=== PATIENT | male | born 1985 | race American Indian/Alaskan Native ===

== ENCOUNTER 2017-04-15 02:48 | Emergency (ER) | payer SELFPAY ==
[2017-04-15 03:47] LABS: Basophils % (Auto) 0.4 % (0.0-1.8); Eosinophils % (Auto) 0.1 % (0.0-4.3); Hematocrit 46.6 % (35.5-45.6); Hemoglobin 15.7 gm/dl (11.8-15.2); Mean Corpuscular HGB Conc 34 % (32-34); Mean Corpuscular Hemoglobin 32 pg (28-32); Mean Corpuscular Volume 95 fl (84-94); Platelet Count 295 K/mm3 (140-440); Red Blood Count 4.92 M/mm3 (3.65-5.03); Red Cell Distribution Width 14.5 % (13.2-15.2); White Blood Count 7.1 K/mm3 (4.5-11.0)
[2017-04-15 03:58] LABS: INR 0.96 (0.87-1.13); Partial Thromboplastin Time 27.8 Sec. (24.2-36.6)
[2017-04-15 04:05] LABS: Anion Gap 24 mmol/L; Blood Urea Nitrogen 8 mg/dL (9-20); Calcium 9.4 mg/dL (8.4-10.2); Carbon Dioxide 26 mmol/L (22-30); Chloride 93.2 mmol/L (98-107); Glucose 94 mg/dL (75-100); Potassium 3.8 mmol/L (3.6-5.0); Sodium 139 mmol/L (137-145)
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
--- NOTE | 2017-04-15 09:02 | Emergency Department Report ---
ED Neuro Deficit HPI - General Chief Complaint: Neuro Symptoms/Deficit Stated Complaint: SEIZURE/FAINTING Time Seen by Provider: 04/15/17 08:25 Source: patient Mode of arrival: Wheelchair Limitations: No Limitations - History of Present Illness Initial Comments: Mr. Moncada is a 81 years old -[place] male he stated that he was watching a movie and when stand up, all of a sudden he passed out. He stated that it was witnessed by his sister she did not notice any jerking movement continue for 2-3 minutes and patient was back to normal. No history of seizure before. No fever no nausea no vomiting no headache no neck pain or stiffness. -: Sudden Presenting Symptoms: Present: Altered Mental Status (past out) Place: home Associated Symptoms: syncope - Related Data Allergies/Adverse Reactions: Allergies Allergy/AdvReac Type Severity Reaction Status Date / Time No Known Allergies Allergy Verified 04/15/17 02:51 ED Review of Systems ROS: Stated complaint: SEIZURE/FAINTING Other details as noted in HPI Comment: All other systems reviewed and negative Constitutional: denies: chills, fever Respiratory: denies: cough, orthopnea, shortness of breath, SOB with exertion, SOB at rest Cardiovascular: denies: chest pain, palpitations, dyspnea on exertion, orthopnea Endocrine: denies: excessive sweating, increased hunger, increased thirst, increased urine Gastrointestinal: denies: abdominal pain, nausea, vomiting, diarrhea Skin: denies: rash Neurological: denies: headache, weakness, numbness, paresthesias ED Past Medical Hx - Past Medical History Previous Medical History?: No - Surgical History Past Surgical History?: No - Social History Smoking Status: Current Every Day Smoker Substance Use Type: None ED Neuro Physical Exam - General Limitations: No Limitations General appearance: alert, in no apparent distress Suspected Stroke: No - Head Head exam: Present: atraumatic, normocephalic, normal inspection - Eye Eye exam: Present: normal appearance, PERRL, EOMI Pupils: Present: normal accommodation - ENT ENT exam: Present: normal exam, normal orophraynx, mucous membranes moist - Neck Neck exam: Present: normal inspection, full ROM. Absent: tenderness, meningismus, lymphadenopathy, thyromegaly - Respiratory Respiratory exam: Present: normal lung sounds bilaterally. Absent: respiratory distress, wheezes, rales, rhonchi, stridor, chest wall tenderness, accessory muscle use, decreased breath sounds, prolonged expiratory - Cardiovascular Cardiovascular Exam: Present: regular rate, normal rhythm, normal heart sounds - GI/Abdominal GI/Abdominal exam: Present: soft. Absent: distended, tenderness, guarding, rebound, mass, bruit, pulsatile mass - Neurological Exam Neurological exam: Present: alert, oriented X3, CN II-XII intact - Psychiatric Psychiatric exam: Present: normal affect, normal mood. Absent: depressed, homicidal ideation, suicidal ideation - Skin Skin exam: Present: warm, normal color ED Course Vital Signs 04/15/17 04/15/17 04/15/17 02:51 07:34 09:34 Temperature 98 F 98 F Pulse Rate 88 68 Respiratory 16 20 20 Rate Blood Pressure 105/71 105/63 O2 Sat by Pulse 96 100 Oximetry - Reevaluation(s) Reevaluation #1: 04/15/17 10:37 Patient observed in the ER no evidence of loss of consciousness or seizure. Patient is alert oriented 3 wanted to go home - Lab Data Result diagrams: 04/15/17 03:26 04/15/17 03:26 Lab Results 04/15/17 04/15/17 04/15/17 Range/Units 03:26 03:26 03:26 WBC 7.1 (4.5-11.0) K/mm3 RBC 4.92 (3.65-5.03) M/mm3 Hgb 15.7 H (11.8-15.2) gm/dl Hct 46.6 H (35.5-45.6) % MCV 95 H (84-94) fl MCH 32 (28-32) pg MCHC 34 (32-34) % RDW 14.5 (13.2-15.2) % Plt Count 295 (140-440) K/mm3 Lymph % (Auto) 9.7 L (13.4-35.0) % [place]win % (Auto) 6.0 (0.0-7.3) % Eos % (Auto) 0.1 (0.0-4.3) % Baso % (Auto) 0.4 (0.0-1.8) % Lymph # 0.7 L (1.2-5.4) K/mm3 Irwin # 0.4 (0.0-0.8) K/mm3 Eos # 0.0 (0.0-0.4) K/mm3 Baso # 0.0 (0.0-0.1) K/mm3 Seg Neutrophils % 83.8 H (40.0-70.0) % Seg Neutrophils # 6.0 (1.8-7.7) K/mm3 PT 13.3 (12.2-14.9) Sec. INR 0.96 (0.87-1.13) APTT 27.8 (24.2-36.6) Sec. Thrombin Time (15.1-19.6) Sec. Sodium 139 (137-145) mmol/L Potassium 3.8 (3.6-5.0) mmol/L Chloride 93.2 L (98-107) mmol/L Carbon Dioxide 26 (22-30) mmol/L Anion Gap 24 mmol/L BUN 8 L (9-20) mg/dL Creatinine 1.0 (0.8-1.5) mg/dL Estimated GFR > 60 ml/min BUN/Creatinine Ratio 8.00 % Glucose 94 (75-100) mg/dL Calcium 9.4 (8.4-10.2) mg/dL Troponin T < 0.010 (0.00-0.029) ng/mL Urine Color (Yellow) Urine Turbidity (Clear) Urine pH (5.0-7.0) Ur Specific [place] (1.003-1.030) Urine Protein (Negative) mg/dL Urine Glucose (UA) (Negative) mg/dL Urine Ketones (Negative) mg/dL Urine Blood (Negative) Urine Nitrite (Negative) Urine Bilirubin (Negative) Urine Urobilinogen (<2.0) mg/dL Ur Leukocyte Esterase (Negative) Urine WBC (Auto) (0.0-6.0) /HPF Urine RBC (Auto) (0.0-6.0) /HPF Urine Mucus /HPF Urine Opiates Screen Urine Methadone Screen Ur Barbiturates Screen Ur Phencyclidine Scrn U Benzodiazepines Scrn Urine Cocaine Screen 04/15/17 04/15/17 04/15/17 Range/Units 03:26 09:32 09:32 WBC (4.5-11.0) K/mm3 RBC (3.65-5.03) M/mm3 Hgb (11.8-15.2) gm/dl Hct (35.5-45.6) % MCV (84-94) fl MCH (28-32) pg MCHC (32-34) % RDW (13.2-15.2) % Plt Count (140-440) K/mm3 Lymph % (Auto) (13.4-35.0) % Irwin % (Auto) (0.0-7.3) % Eos % (Auto) (0.0-4.3) % Baso % (Auto) (0.0-1.8) % Lymph # (1.2-5.4) K/mm3 Irwin # (0.0-0.8) K/mm3 Eos # (0.0-0.4) K/mm3 Baso # (0.0-0.1) K/mm3 Seg Neutrophils % (40.0-70.0) % Seg Neutrophils # (1.8-7.7) K/mm3 PT (12.2-14.9) Sec. INR (0.87-1.13) APTT (24.2-36.6) Sec. Thrombin Time 15.5 (15.1-19.6) Sec. Sodium (137-145) mmol/L Potassium (3.6-5.0) mmol/L Chloride (98-107) mmol/L Carbon Dioxide (22-30) mmol/L Anion Gap mmol/L BUN (9-20) mg/dL Creatinine (0.8-1.5) mg/dL Estimated GFR ml/min BUN/Creatinine Ratio % Glucose (75-100) mg/dL Calcium (8.4-10.2) mg/dL Troponin T (0.00-0.029) ng/mL Urine Color Yellow (Yellow) Urine Turbidity Clear (Clear) Urine pH 6.0 (5.0-7.0) Ur Specific [place] 1.018 (1.003-1.030) Urine Protein 30 mg/dl (Negative) mg/dL Urine Glucose (UA) Neg (Negative) mg/dL Urine Ketones 20 (Negative) mg/dL Urine Blood Neg (Negative) Urine Nitrite Neg (Negative) Urine Bilirubin Neg (Negative) Urine Urobilinogen 2.0 (<2.0) mg/dL Ur Leukocyte Esterase Neg (Negative) Urine WBC (Auto) 2.0 (0.0-6.0) /HPF Urine RBC (Auto) 2.0 (0.0-6.0) /HPF Urine Mucus 2+ /HPF Urine Opiates Screen Presumptive negative Urine Methadone Screen Presumptive negative Ur Barbiturates Screen Presumptive negative Ur Phencyclidine Scrn Presumptive negative U Benzodiazepines Scrn Presumptive negative Urine Cocaine Screen Presumptive negative Critical care attestation.: If time is entered above; I have spent that time in minutes in the direct care of this critically ill patient, excluding procedure time. ED Disposition Clinical Impression: Syncope and collapse Disposition: DC-01 TO HOME OR SELFCARE Is pt being admited?: No Condition: Stable Instructions: Syncope (ED) Referrals: PRIMARY CARE, [Primary Care Provider] - 3-5 Days
[2017-04-15 09:41] LABS: Urine Drugs of Abuse Note Disclamer
[2017-04-15 09:49] LABS: Bilirubin,Urine NEG (Negative); Blood,Urine NEG (Negative); Ketones,Urine 20 mg/dL (Negative); Leukocyte Esterase,Urine NEG (Negative); Mucus,Urine 2+ /HPF; Nitrite,Urine NEG (Negative)
[2017-04-15 10:49] VITALS: BP 108/70
== END 2017-04-15 10:50 | disposition home or self-care (01) ==
LOC: ED 02:48
DX: R55 Syncope and collapse (principal); F17.200 Nicotine dependence, unspecified, uncomplicated
CPT/HCPCS: 36415; 70450; 80048; 80307; 81001; 84484; 85025; 85610; 85670; 85730; 93005; 93010

== ENCOUNTER 2017-07-20 08:17 | Emergency (ER) | payer SELFPAY ==
[2017-07-20] MEDS ORDERED: KEPPRA 1,000 MG/NS 0.75% 100ML 1,000 MG/100 ML BAG IV ONE (08:49)
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
--- NOTE | 2017-07-20 09:30 | Cat Scan Report ---
CT HEAD WITHOUT CONTRAST INDICATION: Seizure. COMPARISON: 04/15/2017. FINDINGS: Noncontrast head CT, repeated for motion, demonstrates normal ventricles and sulci without acute or recent infarct, hemorrhage, mass effect or midline shift. No abnormal extra-axial fluid collections. Posterior fossa structures and basilar cisterns appear within normal limits. Clear imaged paranasal sinuses and mastoid air cells. Intact calvarium. Normal overlying scalp soft tissues. CONCLUSION: No acute intracranial CT abnormality or significant interval change. Thank you for the opportunity to participate in this patient's care.
--- NOTE | 2017-07-20 09:35 | Cat Scan Report ---
CT CERVICAL SPINE WITHOUT CONTRAST INDICATION: Seizure. COMPARISON: None similar. FINDINGS: Noncontrast axial, sagittal and coronal CT reconstructions through the cervical spine demonstrate normal visualized intracranial appearance. Assessment of the spinal canal from C6 inferiorly also compromised due to artifact from shoulder soft tissues. Clear included sinuses and mastoid air cells. Symmetric occipital condyles. Normal anterior and posterior arches of C1. Intact craniocervical articulation with normal predental space, prevertebral soft tissues, vertebral body stature, alignment and posterior elements. No large disc protrusion at any level suspected. Slight C5-C6 disc narrowing. Normal remainder disc heights. Mild C5 superior endplate and C6 inferior endplate degenerative spurring. Normal included thyroid. Right more than left apical emphysematous changes with largest approximately 2.5 cm right apical bulla. CONCLUSION: No acute cervical spine CT abnormality with few incidental findings, as above. Please correlate. Thank you for the opportunity to participate in this patient's care.
--- NOTE | 2017-07-20 10:15 | XRay Report ---
Single view chest: History: PNA. Findings: Normal cardiomediastinal silhouette. Trachea is midline. No consolidation, pneumothorax or pleural effusion. Impression: No acute cardiopulmonary findings.
[2017-07-20 10:27] LABS: Anion Gap 13 mmol/L; BUN/Creatinine Ratio 11; Blood Urea Nitrogen 9 mg/dL (9-20); Carbon Dioxide 29 mmol/L (22-30); Chloride 104.6 mmol/L (98-107); Creatine Kinase 635 units/L (55-170); Glucose 90 mg/dL (75-100); Potassium 5.3 mmol/L (3.6-5.0); Sodium 141 mmol/L (137-145)
[2017-07-20 12:13] LABS: Urine Drugs of Abuse Note Disclamer
[2017-07-20 12:30] LABS: Bilirubin,Urine NEG (Negative); Blood,Urine NEG (Negative); Ketones,Urine NEG (Negative); Leukocyte Esterase,Urine NEG (Negative); Mucus,Urine FEW /HPF; Nitrite,Urine NEG (Negative); Protein,Urine <15 mg/dL mg/dL (Negative)
[2017-07-20 13:13] VITALS: BP 105/58
== END 2017-07-20 13:12 | disposition home or self-care (01) ==
LOC: ED 08:17
DX: R56.9 Unspecified convulsions (principal)
CPT/HCPCS: 36415; 70450; 71010; 72125; 80048; 80307; 81001; 82550; 96365; 99285; G0480; J1953; 80320

== ENCOUNTER 2018-02-19 20:08 | Emergency (ER) | payer SELFPAY ==
[2018-02-19 22:50] VITALS: BP 108/66
[2018-02-20] MEDS ORDERED: KEPPRA PO ONE (00:45)
--- NOTE | 2018-02-20 01:05 | Emergency Department Report ---
HPI - General Chief Complaint: Recheck/Abnormal Lab/Rx Time Seen by Provider: 02/20/18 00:48 - HPI HPI: The patient is 32-year-old male who presents for evaluation of dizziness. The patient reports mild dizziness for the past one to 2 days, exacerbated with position changes or exertion, improved with rest and lying flat. He shares that he has ran out of his antiseizure medication, and that he typically develops dizziness when he is off of his Keppra. The patient denies fever, head injury, headache, neck pain, neck stiffness, vision or hearing changes, smell or taste changes, paresthesias, facial drooping, slurred speech, seizure-like activity, urine or bowel incontinence or retention, or other focal neurological deficit. ED Past Medical Hx - Past Medical History Previous Medical History?: No Additional medical history: Traumatic brain injury? - Surgical History Past Surgical History?: No Additional Surgical History: Unknown if any. - Social History Smoking Status: Current Some Day Smoker Substance Use Type: None - Medications Home Medications: Home Medications Medication Instructions Recorded Confirmed Last Taken Type levETIRAcetam [Keppra TAB] 750 mg PO BID #60 tablet 02/20/18 Unknown Rx ED Review of Systems ROS: Stated complaint: FILL SICK LIKE ABOUT TO FALL OUT Other details as noted in HPI Constitutional: reports dizziness denies: fever ENT: denies: throat or neck pain Respiratory: denies: cough, shortness of breath Cardiovascular: denies: chest pain Endocrine: denies unexplained weight loss or gain Gastrointestinal: denies: abdominal pain, nausea Genitourinary: denies: dysuria Musculoskeletal: denies: leg swelling Skin: denies: rash Neurological: denies: headache Hematological/Lymphatic: denies: easy bleeding or easy bruising Psych: denies sadness or hopelessness Physical Exam - Physical Exam Vital Signs: Vital Signs 02/19/18 22:47 Temperature 98.1 F Pulse Rate 66 Respiratory 12 Rate Blood Pressure 108/66 O2 Sat by Pulse 100 Oximetry Physical Exam: General: well-nourished, well-developed, no acute distress Head: Normocephalic, atraumatic Eyes: normal sclera ENT: Mucous membranes are pale and dry Neck: trachea midline, neck supple, No neck stiffness, no cervical adenopathy Respiratory: Breath sounds equal bilaterally, no wheezing, rales, or rhonchi Cardio: S1 and S2 present, no murmurs, rubs, gallops, capillary refill is delayed Abdomen: Normoactive bowel sounds, soft abdomen, no rigidity, no guarding or rebound tenderness Musc: No pitting edema Skin: No rash Neuro: alert oriented x4, normal cognition, speech normal, PERRL, EOM intact, no facial drooping, no uvula or tongue deviation on protrusion, no deficit with rotation of neck or shoulder shrug, no obvious gross motor deficit in the upper or lower extremities with flexion or extension at the shoulder, elbow, wrist, hip, knee, or ankle bilaterally, no obvious gross sensation deficit to crude touch or 2 pt discrimination, 2+ symmetric reflexes on DTR testing, no coordination deficit with [id number] or wvoc-jn-[id number] testing, Babinski downgoing, romberg negative, patient able to to ambulate without abnormal gait Psych: Normal affect ED Course Vital Signs 02/19/18 22:47 Temperature 98.1 F Pulse Rate 66 Respiratory 12 Rate Blood Pressure 108/66 O2 Sat by Pulse 100 Oximetry ED Medical Decision Making - Medical Decision Making The patient seen and examined by myself. No findings on exam aside from central etiology of the patient's dizziness. Exam findings reveal dehydration likely orthostatic etiology patient dizziness. The patient was offered IV normal saline fluid bolus for treatment of his dehydration, and he declined. The patient is given a tablet of Keppra. The patient was reevaluated and reported that their symptoms were markedly improved. The patient is stable for discharge with outpatient follow-up. The patient is given follow-up and return instructions. The patient expressed understanding and agreed with the plan. The patient is discharged in stable condition. Critical care attestation.: If time is entered above; I have spent that time in minutes in the direct care of this critically ill patient, excluding procedure time. ED Disposition Clinical Impression: Dizziness, nonspecific, Dehydration Disposition: - TO HOME OR SELFCARE Is pt being admited?: No Does the pt Need Aspirin: No Condition: Stable Instructions: Dizziness (ED), Epilepsy (ED) Prescriptions: levETIRAcetam [Keppra TAB] 750 mg PO BID #60 tablet Referrals: [facility] [Outside] - 3-5 Days PRIMARY CARE, [Primary Care Provider] - 3-5 Days Time of Disposition: 01:25
== END 2018-02-20 01:30 | disposition home or self-care (01) ==
LOC: ED 20:08
DX: E86.0 Dehydration (principal); F17.200 Nicotine dependence, unspecified, uncomplicated
CPT/HCPCS: 99282

== ENCOUNTER 2018-10-02 23:24 | Emergency (ER) | payer SELFPAY ==
[2018-10-03 04:23] VITALS: BP 123/59
[2018-10-03] MEDS ORDERED: KEPPRA 1,000 MG/NS 0.75% 100ML 1,000 MG/100 ML BAG IV ONE (04:32)
[2018-10-03] MEDS ORDERED: NACL 0.9% 1000 ML 1,000 ML IV ONE (04:32)
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
[2018-10-03 05:16] LABS: Benzodiazepines Screen,Urine PRESUMPTIVE NEGATIVE; Cannabinoid Screen,Urine PRESUMPTIVE NEGATIVE; Cocaine Screen,Urine PRESUMPTIVE NEGATIVE; Methadone Screen,Urine PRESUMPTIVE NEGATIVE; Opiate Screen,Urine PRESUMPTIVE NEGATIVE
--- NOTE | 2018-10-03 05:18 | Cat Scan Report ---
FINAL REPORT PROCEDURE: CT HEAD/BRAIN WO CON TECHNIQUE: Computerized tomography of the head was performed without contrast material. HISTORY: Seizure COMPARISON: No prior studies are available for comparison. FINDINGS: Skull and scalp: Normal. Paranasal sinuses: Normal. Ventricles and subarachnoid spaces: Normal. Cerebrum: No evidence of hemorrhage, acute infarction or mass . Cerebellum and brainstem: No evidence of hemorrhage, acute infarction or mass. Vasculature: Normal. Comments: None. IMPRESSION: Normal Examination
[2018-10-03 05:28] LABS: Amphetamine Screen,Urine PRESUMPTIVE POSITIVE
[2018-10-03 05:37] LABS: Basophils # (Auto) 0.1 K/mm3 (0.0-0.1); Basophils % (Auto) 1.3 % (0.0-1.8); Eosinophils % (Auto) 0.3 % (0.0-4.3); Hematocrit 39.5 % (35.5-45.6); Hemoglobin 13.3 gm/dl (11.8-15.2); Lymphocytes # (Auto) 1.4 K/mm3 (1.2-5.4); Lymphocytes % (Auto) 13.1 % (13.4-35.0); Mean Corpuscular HGB Conc 34 % (32-34); Mean Corpuscular Volume 96 fl (84-94); Monocytes % (Auto) 9.4 % (0.0-7.3); Platelet Count 295 K/mm3 (140-440); Red Cell Distribution Width 14.4 % (13.2-15.2)
[2018-10-03 05:57] LABS: Alanine Aminotransferase 31 units/L (7-56); Albumin 3.4 g/dL (3.9-5); BUN/Creatinine Ratio 7; Blood Urea Nitrogen 6 mg/dL (9-20); Hemolysis Index 8
== END 2018-10-03 06:41 | disposition home or self-care (01) ==
LOC: ED 23:24
DX: R56.9 Unspecified convulsions (principal); F17.200 Nicotine dependence, unspecified, uncomplicated
CPT/HCPCS: 36415; 70450; 80053; 80307; 85025; 96374; 99284; G0480; J1953; J7030; 80320

== ENCOUNTER 2020-08-24 06:50 | Emergency (ER) | payer SELFPAY ==
[2020-08-24] MEDS ORDERED: levETIRAcetam 1000 MG/NS 0.75% 1,000 MG/100 ML BAG IV ONE ×2 (07:35→10:46)
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
[2020-08-24] MEDS ORDERED: LORazepam 2 MG/ML VIAL ONE (08:15)
[2020-08-24] MEDS ORDERED: LORazepam 2 MG/ML VIAL IM STA (08:15)
[2020-08-24 08:36] LABS: Hematocrit 51.4 % (35.5-45.6); Hemoglobin 16.5 gm/dl (11.8-15.2); Mean Corpuscular HGB Conc 32 % (32-34); Mean Corpuscular Volume 99 fl (84-94); Platelet Count 365 K/mm3 (140-440); Red Blood Count 5.21 M/mm3 (3.65-5.03); Red Cell Distribution Width 15.6 % (13.2-15.2)
[2020-08-24 08:47] LABS: BUN/Creatinine Ratio 7; Blood Urea Nitrogen 11 mg/dL (9-20); Calcium 10.8 mg/dL (8.4-10.2); Hemolysis Index 5
[2020-08-24 09:54] LABS: RBC Morphology Normal; Total Cells Counted 100; Toxic Granulation 2+; Toxic Vacuolation 1+
[2020-08-24 09:55] LABS: Platelet Estimate Consistent w Auto
[2020-08-24] MEDS ORDERED: SODIUM CHLORIDE 0.9% 1000 ML 1,000 ML IV ONE (10:23)
[2020-08-24 13:42] VITALS: BP 108/74
== END 2020-08-24 13:42 | disposition home or self-care (01) ==
LOC: ED 06:50
DX: G40.909 Epilepsy, unspecified, not intractable, without status epilepticus (principal); F17.200 Nicotine dependence, unspecified, uncomplicated; Z79.899 Other long term (current) drug therapy; Z98.890 Other specified postprocedural states; Z91.14 Patient's other noncompliance with medication regimen
CPT/HCPCS: 36415; 80048; 85007; 85025; 96361; 96372; 96374; 99283; J1953; J2060; J7030